=== PATIENT | male | born 1950 | race Caucasian/White ===

== ENCOUNTER 2020-10-24 13:00 | Inpatient (IN) | payer OTHER ==
[2020-10-24 13:34] LABS: BASOPHILS % (AUTO) 0.8 % (0.0-5.0); EOSINOPHILS % (AUTO) 2.3 % (0.0-8.0); HEMATOCRIT 49.2 % (42-54); LYMPHOCYTES % (AUTO) 20.1 % (21.0-51.0); MEAN CORPUSCULAR HEMOGLOBIN 30.9 pg (27.0-33.0); MEAN CORPUSCULAR HGB CONC 32.3 g/dL (32.0-36.0); MEAN CORPUSCULAR VOLUME 95.5 fL (79-99); MONOCYTES % (AUTO) 6.2 % (3.0-13.0); NEUTROPHILS % (AUTO) 70.4 % (40.0-77.0); PLATELET COUNT (AUTO) 153 K/uL (130-400); RED BLOOD CELL COUNT(AUTO) 5.15 MIL/uL (4.50-6.20); RED CELL DISTRIBUTION WIDTH 12.6 % (11.0-15.5); WHITE BLOOD COUNT (AUTO) 6.2 K/uL (4.8-10.8)
[2020-10-24 13:41] LABS: APPEARANCE,URINE Clear (CLEAR); BILIRUBIN,URINE Negative (NEGATIVE); COLOR,URINE Yellow (YELLOW); GLUCOSE, URINE (UA) Negative (NEGATIVE); KETONES,URINE Negative (NEGATIVE); LEUKOCYTE ESTERASE ,URINE Trace (NEGATIVE); NITRATE,URINE Negative (NEGATIVE); OCCULT BLOOD,URINE Negative (NEGATIVE); PH,URINE 7.5 (5.0-8.0); PROTEIN,URINE Negative (NEGATIVE); UROBILINOGEN,URINE 0.2 mg/dL (0.2-1.0)
[2020-10-24 13:44] LABS: ABG BASE EXCESS 5.3 mmol/L (-2.0-3.0); ABG HCO3 33.1 mmol/L (21.0-28.0); ABG OXYGEN SATURATION 80.4 % (95.0-99.0); ABG PCO2 62 mmHg (35-48)
[2020-10-24 13:45] LABS: CREATININE 1.4 mg/dL (0.5-1.5); POTASSIUM 4.7 mmol/L (3.5-5.1)
[2020-10-24 13:46] LABS: INR 1.13 (0.85-1.15)
[2020-10-24 13:47] LABS: PARTIAL THROMBOPLASTIN TIME 24.7 SEC (26.3-35.5)
[2020-10-24 13:50] LABS: ALBUMIN 3.9 g/dL (3.5-5.0); BILIRUBIN,TOTAL 0.7 mg/dL (0.2-1.0); TOTAL PROTEIN, SERUM 7.1 g/dL (6.0-8.3)
[2020-10-24 13:50] LABS: BACTERIA,URINE None Seen /HPF (None Seen); RBC,URINE 0-1 /HPF (0-1); SQUAMOUS EPITHELIAL CELL,UR 0-2 /HPF (0-2); WBC,URINE None Seen /HPF (0-1)
[2020-10-24 13:57] LABS: B-TYPE NATRIURETIC PEPTIDE 22 pg/mL (0-100)
[2020-10-24] MEDS ORDERED: ALBUTEROL INHALER 90MCG/INH IH ONE (15:23)
[2020-10-24] MEDS ORDERED: AZITHROMYCIN 250 MG TABLET PO ONE (15:24)
[2020-10-24] MEDS ORDERED: CEFTRIAXONE 1G VIAL ONE (15:24)
[2020-10-24] MEDS ORDERED: ONDANSETRON 4MG INJ IV PRN (15:30)
[2020-10-24] MEDS ORDERED: GLUCAGON 1MG KIT 1 MG ML IM PRN (15:30)
[2020-10-24] MEDS ORDERED: DEXTROSE 50%-WATER 50 ML DISP.SYRIN IV PRN (15:30)
[2020-10-24] MEDS ORDERED: ACETAMINOPHEN 325 MG TAB PO PRN ×2 (15:30)
[2020-10-24] MEDS ORDERED: NITROGLYCERIN 0.4 MG SL TAB SL PRN (15:30)
[2020-10-24] MEDS: INSULIN HUMULIN R 100 UNIT/ML 3ML SQ SCH ×2 (16:30→21:00)
[2020-10-24 20:06] LABS: CREATINE KINASE, TOTAL 294 U/L (21-232); MYOGLOBIN 157 ng/mL (10-92); TROPONIN I < 0.04 ng/mL (0.00-0.06)
[2020-10-24] MEDS: FAMOTIDINE 20MG TAB PO SCH (21:00)
[2020-10-24] MEDS: HEPARIN 5,000 UNIT VIAL SQ SCH (21:00)
[2020-10-24] MEDS ORDERED: HEPARIN 5,000 UNIT VIAL ONE (21:28)
[2020-10-24] MEDS ORDERED: FAMOTIDINE 20MG TAB ONE (21:28)
[2020-10-25 05:12] LABS: BASOPHILS % (AUTO) 1.2 % (0.0-5.0); EOSINOPHILS % (AUTO) 2.7 % (0.0-8.0); MEAN CORPUSCULAR HEMOGLOBIN 30.5 pg (27.0-33.0); MEAN CORPUSCULAR HGB CONC 31.9 g/dL (32.0-36.0); MEAN CORPUSCULAR VOLUME 95.7 fL (79-99); MONOCYTES % (AUTO) 7.8 % (3.0-13.0); NEUTROPHILS % (AUTO) 63.9 % (40.0-77.0); PLATELET COUNT (AUTO) 147 K/uL (130-400); RED BLOOD CELL COUNT(AUTO) 4.91 MIL/uL (4.50-6.20); RED CELL DISTRIBUTION WIDTH 12.7 % (11.0-15.5); WHITE BLOOD COUNT (AUTO) 5.2 K/uL (4.8-10.8)
[2020-10-25 05:44] LABS: ALANINE AMINOTRANSFERASE 35 U/L (12-78); ALBUMIN 3.7 g/dL (3.5-5.0); ASPARTATE AMINOTRANSFERASE 33 U/L (10-37); BILIRUBIN,TOTAL 0.7 mg/dL (0.2-1.0); CARBON DIOXIDE 34 mmol/L (21-32); CHLORIDE 104 mmol/L (101-111); CREATINE KINASE, TOTAL 235 U/L (21-232); GLOMERULAR FILTR. RATE CALC 78 mL/min (>60); GLUCOSE,RANDOM 105 mg/dL (70-105); MYOGLOBIN 144 ng/mL (10-92); POTASSIUM 4.6 mmol/L (3.5-5.1); SODIUM SERUM 144 mmol/L (136-145); TOTAL PROTEIN, SERUM 6.4 g/dL (6.0-8.3); TROPONIN I < 0.04 ng/mL (0.00-0.06); UREA NITROGEN, BLOOD 15 mg/dL (7-18)
[2020-10-25 05:46] LABS: CRP QUANTITATIVE < 2.00 mg/L (0.00-9.0)
[2020-10-25] MEDS: INSULIN HUMULIN R 100 UNIT/ML 3ML SQ SCH ×4 (07:30→21:00)
[2020-10-25] MEDS ORDERED: HEPARIN 5,000 UNIT VIAL ONE ×2 (08:15→21:46)
[2020-10-25] MEDS: HEPARIN 5,000 UNIT VIAL SQ SCH ×3 (09:00→21:00)
[2020-10-25] MEDS ORDERED: LISI5TAB21 PO (09:39)
[2020-10-25] MEDS ORDERED: ASPI-1443 PO (09:39)
[2020-10-25] MEDS ORDERED: MULT-1192 PO (09:39)
[2020-10-25] MEDS ORDERED: METF-446 PO (09:39)
[2020-10-25] MEDS ORDERED: IOHEXOL-350 75 ML VIAL IV ONE (12:34)
[2020-10-25] MEDS ORDERED: AZITHROMYCIN 500MG+NS 250ML 250 ML IV SCH (15:00)
[2020-10-25] MEDS ORDERED: CEFTRIAXONE 1G VIAL IV SCH (15:00)
[2020-10-25] MEDS ORDERED: CEFTRIAXONE 1G VIAL ONE (17:13)
[2020-10-25] MEDS: FAMOTIDINE 20MG TAB PO SCH (21:00)
[2020-10-25] MEDS ORDERED: FAMOTIDINE 20MG TAB ONE (21:46)
[2020-10-26 04:28] LABS: EOSINOPHILS % (AUTO) 2.7 % (0.0-8.0); HEMATOCRIT 49.6 % (42-54); LYMPHOCYTES % (AUTO) 21.3 % (21.0-51.0); MEAN CORPUSCULAR HEMOGLOBIN 30.1 pg (27.0-33.0); MEAN CORPUSCULAR HGB CONC 31.5 g/dL (32.0-36.0); MEAN CORPUSCULAR VOLUME 95.6 fL (79-99); MONOCYTES % (AUTO) 8.3 % (3.0-13.0); NEUTROPHILS % (AUTO) 66.5 % (40.0-77.0); PLATELET COUNT (AUTO) 149 K/uL (130-400); RED BLOOD CELL COUNT(AUTO) 5.19 MIL/uL (4.50-6.20); RED CELL DISTRIBUTION WIDTH 12.8 % (11.0-15.5); WHITE BLOOD COUNT (AUTO) 5.2 K/uL (4.8-10.8)
[2020-10-26 04:53] LABS: ALBUMIN 3.6 g/dL (3.5-5.0); BILIRUBIN,TOTAL 0.8 mg/dL (0.2-1.0); CRP QUANTITATIVE 5.4 mg/L (0.00-9.0); POTASSIUM 4.4 mmol/L (3.5-5.1); TOTAL PROTEIN, SERUM 6.9 g/dL (6.0-8.3)
[2020-10-26 05:04] VITALS: BP 101/70
[2020-10-26] MEDS: INSULIN HUMULIN R 100 UNIT/ML 3ML SQ SCH ×2 (06:15→11:30)
[2020-10-26 08:00] VITALS: BP 121/75
[2020-10-26] MEDS: HEPARIN 5,000 UNIT VIAL SQ SCH (09:03)
[2020-10-26] MEDS ORDERED: ASPI-1197 PO (10:59)
[2020-10-26] MEDS ORDERED: DOXY-252 PO (10:59)
[2020-10-26 12:16] VITALS: BP 112/79
== END 2020-10-26 12:21 | disposition home or self-care (01) | DRG 193 ==
LOC: EDH 13:00 → EDHIP 15:13 → 4AH 10-26 03:56
PROVIDERS: ADMIT Hospitalist; ATTEND Hospitalist
DX: J15.9 Unspecified bacterial pneumonia (principal); J96.02 Acute respiratory failure with hypercapnia; J96.01 Acute respiratory failure with hypoxia; N17.9 Acute kidney failure, unspecified; E11.9 Type 2 diabetes mellitus without complications; R74.8 Abnormal levels of other serum enzymes; Z20.822 Contact with and (suspected) exposure to COVID-19
CPT/HCPCS: 36415; 36600; 71045; 71250; 71275; 72192; 73552; 80053; 81001; 82550; 82803; 82948; 83036; 83605; 83735; 83874; 83880; 84145; 84484; 85025; 85378; 85610; 85730; 86140; 87040; 87426; 87449; 87804; 93005; 94760; 99291; G0378; J0696; J1644; Q9967; U0003